=== PATIENT | female | born 1970 | race American Indian/Alaskan Native ===

== ENCOUNTER 2021-10-03 09:22 | Emergency (ER) | payer BC ==
[2021-10-03] MEDS ORDERED: SODIUM CHLORIDE 0.9% 1000 ML 1,000 ML IV ONE (10:26)
[2021-10-03] MEDS ORDERED: ONDANSETRON 4 MG/2 ML INJ IV ONE (10:26)
[2021-10-03] MEDS ORDERED: KETOROLAC 30 MG/1 ML INJ IV ONE (10:26)
[2021-10-03] MEDS ORDERED: MORPHINE 4 MG/1 ML INJ IV ONE (10:27)
[2021-10-03 11:09] LABS: Basophils % (Auto) 0.3 % (0.0-1.8); Lymphocytes # (Auto) 3.8 K/mm3 (1.2-5.4); Lymphocytes % (Auto) 26.1 % (13.4-35.0); Mean Corpuscular HGB Conc 29 % (30-34); Mean Corpuscular Volume 84 fl (79-97); Monocytes # (Auto) 1.1 K/mm3 (0.0-0.8); Monocytes % (Auto) 7.8 % (0.0-7.3); Platelet Count 568 K/mm3 (140-440); Red Blood Count 5.44 M/mm3 (3.65-5.03); Red Cell Distribution Width 14.7 % (13.2-15.2)
[2021-10-03 11:21] LABS: Hematocrit 45.8 % (30.3-42.9); Hemoglobin 13.5 gm/dl (10.1-14.3)
[2021-10-03] MEDS ORDERED: cefTRIAXone/NS 1 GM/50 ML 1 GM/50 ML BAG IV ONE (11:21)
[2021-10-03 11:43] LABS: Alanine Aminotransferase 8 units/L (7-56); Albumin 4.3 g/dL (3.9-5); BUN/Creatinine Ratio 16; Blood Urea Nitrogen 13 mg/dL (7-17); Calcium 9.3 mg/dL (8.4-10.2); Hemolysis Index 7
--- NOTE | 2021-10-03 12:42 | Cat Scan Report ---
CT ABDOMEN AND PELVIS WITHOUT CONTRAST INDICATION / CLINICAL INFORMATION: abd pain. TECHNIQUE: Axial CT images were obtained through the abdomen and pelvis without IV contrast. Sagittal and glaser l reformatted images. All CT scans at this location are performed using CT dose reduction for ALARA b y means of automated exposure control. COMPARISON: None available. FINDINGS: LOWER CHEST: No significant abnormality. LIVER: No significant abnormality. GALLBLADDER: Multiple gallstones are present. No abnormal dilatation or wall thickening. BILE DUCTS: No significant abnormality. PANCREAS: No significant abnormality. SPLEEN: No significant abnormality. ADRENALS: No significant abnormality. RIGHT KIDNEY and URETER: 3 or 4 punctate calyceal stones are identified in the right kidney. No focal right renal lesion or hydronephrosis. LEFT KIDNEY and URETER: There appear to be 2 stones in the distal left ureter measuring up to 3 mm. T here is moderate left hydronephrosis. A few punctate calyceal stones are identified in the left kidne y. No focal left renal lesion. STOMACH and SMALL BOWEL: Gastric sleeve surgical changes are suspected. The small bowel loops are unr emarkable. COLON: No significant abnormality. Mild diverticulosis of the distal colon is noted. APPENDIX: No significant abnormality. PERITONEUM: No free fluid. No free air. No fluid collection. LYMPH NODES: No significant adenopathy. AORTA and ARTERIES: No significant abnormality. IVC and VEINS: No significant abnormality. URINARY BLADDER: No significant abnormality. REPRODUCTIVE ORGANS: No significant abnormality. ADDITIONAL FINDINGS: None. SKELETAL SYSTEM: No significant abnormality. IMPRESSION: 2 small stones are identified in the distal left ureter, moderately obstructing. Punctate bilateral r enal stones. Cholelithiasis. Signer Name: Domenico Jaimes Jr, MD Signed: 10/03/2021 12:37 PM Workstation Name: [id number]
[2021-10-03 13:13] LABS: Bilirubin,Urine NEG (Negative); Blood,Urine LG (Negative); Color,Urine Yellow (Yellow); Protein,Urine <15 mg/dL mg/dL (Negative); Urobilinogen,Urine < 2.0 mg/dL (<2.0); WBC,Urine < 1.0 /HPF (0.0-6.0)
[2021-10-03] MEDS ORDERED: HYDROmorphone 1 MG/1 ML INJ IV ONE (13:14)
--- NOTE | 2021-10-03 13:15 | Emergency Department Report ---
ED Abdominal Pain HPI - General Chief Complaint: Back Pain/Injury Stated Complaint: LFT SIDE PAIN PUI?: No Time Seen by Provider: 10/03/21 10:27 Source: patient Mode of arrival: Ambulatory Limitations: No Limitations - History of Present Illness Initial Comments: 51 yo comes to ER with left flank pain and n/v. No fever or chills. No diarrhea. No cp. No sob. No dysuria. No vag dc. MD Complaint: abdominal pain, flank pain -: Sudden, hour(s) Location: L flank Radiation: none Severity scale (0 -10): 5 Consistency: constant Improves With: nothing Worsens With: nothing - Related Data Previous Rx's Medication Instructions Recorded Last Taken Type Nitrofurantoin Cecil/M-Cryst 100 mg PO Q12HR 10 Days capsule 10/03/21 Unknown Rx [Macrobid CAP] Ondansetron [Zofran Odt] 4 mg PO Q8HR PRN #10 tab.rapdis 10/03/21 Unknown Rx traMADoL [Ultram] 50 mg PO Q6HR PRN #12 tablet 10/03/21 Unknown Rx Allergies Allergy/AdvReac Type Severity Reaction Status Date / Time No Known Allergies Allergy Verified 10/03/21 10:17 ED Review of Systems ROS: Stated complaint: LFT SIDE PAIN Other details as noted in HPI Comment: All other systems reviewed and negative ED Past Medical Hx - Past Medical History Previous Medical History?: Yes Hx Hypertension: Yes Additional medical history: hypothyroidism - Surgical History Past Surgical History?: Yes Additional Surgical History: hysterectomy with ureter damage- stent/uroseptis; stent removed 11/12; g sleeve; apron removal; tubal; c section - Family History Family history: no significant - Social History Smoking Status: Never Smoker Substance Use Type: None - Medications Home Medications: Home Medications Medication Instructions Recorded Confirmed Last Taken Type Nitrofurantoin [place]/M-Cryst 100 mg PO Q12HR 10 Days capsule 10/03/21 Unknown Rx [Macrobid CAP] Ondansetron [Zofran Odt] 4 mg PO Q8HR PRN #10 tab.rapdis 10/03/21 Unknown Rx traMADoL [Ultram] 50 mg PO Q6HR PRN #12 tablet 10/03/21 Unknown Rx ED Physical Exam - General Limitations: No Limitations General appearance: alert, in no apparent distress - Head Head exam: Present: atraumatic, normocephalic - Eye Eye exam: Present: normal appearance - ENT ENT exam: Present: mucous membranes moist - Neck Neck exam: Present: normal inspection - Respiratory Respiratory exam: Present: normal lung sounds bilaterally. Absent: respiratory distress - Cardiovascular Cardiovascular Exam: Present: regular rate, normal rhythm. Absent: systolic murmur, diastolic murmur, rubs, gallop - GI/Abdominal GI/Abdominal exam: Present: soft, normal bowel sounds - Extremities Exam Extremities exam: Present: normal inspection - Back Exam Back exam: Present: normal inspection - Neurological Exam Neurological exam: Present: alert, oriented X3 - Psychiatric Psychiatric exam: Present: normal affect, normal mood - Skin Skin exam: Present: warm, dry, intact, normal color. Absent: rash ED Course Vital Signs 10/03/21 10:15 Temperature 98.4 F Pulse Rate 62 Respiratory 18 Rate Blood Pressure 185/93 O2 Sat by Pulse 98 Oximetry - Reevaluation(s) Reevaluation #1: 10/03/21 14:47 home meds lisinopril norvasc synthroid ED Medical Decision Making - Lab Data Result diagrams: 10/03/21 10:31 10/03/21 10:31 - Radiology Data Radiology results: report reviewed, image reviewed see report - Medical Decision Making Labs 10/03/21 10/03/21 10/03/21 10:31 10:31 10:31 WBC 14.5 H RBC 5.44 H Hgb 13.5 Hct 45.8 H MCV 84 MCH 25 L MCHC 29 L RDW 14.7 Plt Count 568 H Lymph % (Auto) 26.1 Cecil % (Auto) 7.8 H Eos % (Auto) 0.0 Baso % (Auto) 0.3 Lymph # (Auto) 3.8 Cecil # (Auto) 1.1 H Eos # (Auto) 0.0 Baso # (Auto) 0.0 Seg Neutrophils % 65.8 Seg Neutrophils # 9.6 H Sodium 137 Potassium 4.0 Chloride 98.7 Carbon Dioxide 23 Anion Gap 19 BUN 13 Creatinine 0.8 Estimated GFR > 60 BUN/Creatinine Ratio 16 Glucose 132 H POC Glucose Calcium 9.3 Total Bilirubin 0.30 AST 8 ALT 8 Alkaline Phosphatase 78 Total Protein 7.3 Albumin 4.3 Albumin/Globulin Ratio 1.4 Lipase 23 Urine Color Urine Turbidity Urine pH Ur Specific Sunset Urine Protein Urine Glucose (UA) Urine Ketones Urine Blood Urine Nitrite Urine Bilirubin Urine Urobilinogen Ur Leukocyte Esterase Urine WBC (Auto) Urine RBC (Auto) 10/03/21 10/03/21 13:23 Unknown WBC RBC Hgb Hct MCV MCH MCHC RDW Plt Count Lymph % (Auto) Cecil % (Auto) Eos % (Auto) Baso % (Auto) Lymph # (Auto) Cecil # (Auto) Eos # (Auto) Baso # (Auto) Seg Neutrophils % Seg Neutrophils # Sodium Potassium Chloride Carbon Dioxide Anion Gap BUN Creatinine Estimated GFR BUN/Creatinine Ratio Glucose POC Glucose < 10 L Calcium Total Bilirubin AST ALT Alkaline Phosphatase Total Protein Albumin Albumin/Globulin Ratio Lipase Urine Color Yellow Urine Turbidity Slightly-cloudy Urine pH 6.0 Ur Specific Sunset 1.021 Urine Protein <15 mg/dl Urine Glucose (UA) Neg Urine Ketones Neg Urine Blood Lg Urine Nitrite Neg Urine Bilirubin Neg Urine Urobilinogen < 2.0 Ur Leukocyte Esterase Neg Urine WBC (Auto) < 1.0 Urine RBC (Auto) < 1.0 Vital Signs 10/03/21 10:15 Temperature 98.4 F Pulse Rate 62 Respiratory 18 Rate Blood Pressure 185/93 O2 Sat by Pulse 98 Oximetry labs noted ua noted ct noted fluids given IV rocephin 1 GM pain and nausea treated all with good response findings discussed with pt Dr Mendoza office called for outpt follow up given her hx of stent and current stones/WBC/hydronephrosis She has been given appnt on Friday. Pt aware. Per uro ok to dc with Friday follow up. Pt verbalizes understanding of dc plan of care. Pt has copies of labs/imaging and discharge packet on her person. She understands use of meds, diet,activity and follow up. On dc pt ambulatory non toxic, taking po with normal VS - Differential Diagnosis ro stone/uti Critical care attestation.: If time is entered above; I have spent that time in minutes in the direct care of this critically ill patient, excluding procedure time. ED Disposition Clinical Impression: Kidney stones UTI (urinary tract infection) Qualifiers: Urinary tract infection type: site unspecified Hematuria presence: with he maturia Qualified Code(s): N39.0 - Urinary tract infection, site not specified; R31.9 - Hematuria, unspecified Hydronephrosis Qualifiers: Hydronephrosis type: unspecified Qualified Code(s): N13.30 - Unspecified hydronephrosis Disposition: 01 HOME / SELF CARE / HOMELESS Is pt being admited?: No Does the pt Need Aspirin: No Condition: Stable Instructions: Low-Purine Eating Plan, Kidney Stones, [id number] Additional Instructions: follow up as we arranged meds as ordered stay well hydrated with water motrin or tylenol can be used in addition to meds given to you today Prescriptions: Nitrofurantoin [place]/M-Cryst [Macrobid CAP] 100 mg PO Q12HR 10 Days capsule traMADoL [Ultram] 50 mg PO Q6HR PRN #12 tablet PRN Reason: Pain Ondansetron [Zofran Odt] 4 mg PO Q8HR PRN #10 tab.rapdis PRN Reason: Vomiting Referrals: PRIMARY CARE, [Primary Care Provider] - 3-5 Days BELLE MENDOZA MD [Staff Physician] - 3-5 Days Forms: Work/School Release Form Time of Disposition: 14:25
[2021-10-03 13:16] LABS: RBC,Urine < 1.0 /HPF (0.0-6.0)
[2021-10-03] MEDS ORDERED: ONDANSETRON 4 MG ODT TAB PO ONE (14:49)
[2021-10-03] MEDS ORDERED: HYDROcodone/ACETAMINOPHEN 10-325MG TAB PO ONE (14:49)
[2021-10-03 15:46] VITALS: BP 196/91
== END 2021-10-03 15:41 | disposition home or self-care (01) ==
LOC: ED 09:22
DX: N20.0 Calculus of kidney (principal); N39.0 Urinary tract infection, site not specified; N13.30 Unspecified hydronephrosis; I10 Essential (primary) hypertension
CPT/HCPCS: 36415; 74176; 80053; 81001; 82962; 83690; 85025; 96361; 96365; 96366; 96375; 99284; J0696; J1170; J1885; J2270; J2405; J7030; Q0162

== ENCOUNTER 2021-10-11 07:11 | Day surgery (SDC) | payer BC ==
[~2021-10-11 07:11] MED LIST: LACTATED RINGERS 1,000 ML IV SCH; MIDAZOLAM 2 MG/2 ML INJ IV NR
[2021-10-11] MEDS ORDERED: BACTERIOSTATIC SODIUM CHLORIDE 0.9% 30 ML VIAL INFILTRATI ONE (07:32)
--- NOTE | 2021-10-11 08:12 | Anesthesia Day of Surgery ---
Anesthesia Day of Surgery - Day of Surgery Patient Examined: Yes Patient H&P Reviewed: Yes Patient is NPO: Yes
--- NOTE | 2021-10-11 08:12 | Anesthesia Consultation ---
Anesthesia Consult and Med Hx Date of service: 10/11/21 - Airway Anesthetic Teeth Evaluation: Good, Caps (#8) ROM Head & Neck: Adequate Mental/Hyoid Distance: Adequate Mallampati Class: Class II Intubation Access Assessment: Probably Good - Pre-Operative Health Status ASA Pre-Surgery Classification: ASA2 Proposed Anesthetic Plan: General - Pulmonary Hx Smoking: No Hx Respiratory Symptoms: No Hx Sleep Apnea: No (SKYLER PRE SCREEN HIGH RISK) - Cardiovascular System Hx Hypertension: Yes (took antihypertensives last night) Hx Heart Attack/AMI: No Hx Percutaneous Transluminal Coronary Angioplasty (PTCA): No - Central Nervous System CVA: No - Endocrine Hx Renal Disease: No Hx Liver Disease: No Hx Insulin Dependent Diabetes: No Hx Non-Insulin Dependent Diabetes: No Hx Hypothyroidism: Yes - Hematic Hx Anemia: Yes - Other Systems Hx Obesity: Yes (BMI 39) - Additional Comments Anesthesia Medical History Comments: No hx anesthetic complications.
[2021-10-11] MEDS ORDERED: LIDOCAINE MPF (2%) 20 MG/1 ML VIAL 5 ML ONE (08:48)
[2021-10-11] MEDS ORDERED: propofoL 200 MG/20 ML VIAL IV ONE (08:49)
[2021-10-11] MEDS ORDERED: ceFAZolin/Water 2 GM/20 ML 2 GM/20 ML SYRINGE IV NR (09:00)
[2021-10-11] MEDS ORDERED: dexAMETHasone 20 MG/5 ML VIAL ONE (09:09)
[2021-10-11] MEDS ORDERED: IOHEXOL 300 MG/ML 50ML IV ONE (09:16)
[2021-10-11] MEDS ORDERED: WATER FOR IRRIG STERILE 2000 ML IR ONE (09:16)
[2021-10-11] MEDS ORDERED: WATER FOR IRRIG STERILE 1,500 ML BOTTLE IR ONE (09:16)
[2021-10-11] MEDS ORDERED: HYDROcodone/ACETAMINOPHEN 5-325 MG TAB PO PRN (09:30)
[2021-10-11] MEDS ORDERED: ONDANSETRON 4 MG/2 ML INJ IV PRN (09:30)
[2021-10-11] MEDS ORDERED: fentaNYL 100 MCG/2 ML INJ IV PRN (09:30)
--- NOTE | 2021-10-11 09:40 | Short Stay Summary ---
Short Stay Documentation Date of service: 10/11/21 - History H&P: obtained from office - Allergies and Medications Current Medications: Allergies No Known Allergies Allergy (Verified 10/03/21 10:17) Home Medications Medication Instructions Recorded Confirmed Last Taken Type HYDROcodone/APAP 5-325 [[place] 1 each PO Q6HR PRN #10 tablet 10/03/21 10/08/21 Unknown Rx 5/325] Ibuprofen [Motrin] 800 mg PO Q8HR PRN #30 tablet 10/03/21 10/08/21 Unknown Rx Nitrofurantoin [place]/M-Cryst 100 mg PO Q12HR 10 Days capsule 10/03/21 10/08/21 Unknown Rx [Macrobid CAP] Ondansetron [Zofran Odt] 4 mg PO Q8HR PRN #10 tab.rapdis 10/03/21 10/08/21 Unknown Rx Calcium Carbonate [Tums 500MG CHEW] 500 mg PO PRN PRN 10/08/21 10/08/21 Unknown History Levothyroxine Sodium [Synthroid] 150 mcg PO DAILY 10/08/21 10/08/21 Unknown History Lisinopril [Zestril TAB] 30 mg PO QDAY 10/08/21 10/08/21 Unknown History Simethicone [Gas-X Ultra Strength] 180 mg PO PRN PRN 10/08/21 10/08/21 Unknown History Tamsulosin [Flomax] 0.4 mg PO QDAY 10/08/21 10/08/21 Unknown History amLODIPine [Norvasc] 10 mg PO DAILY 10/08/21 10/08/21 Unknown History clonazePAM [KlonoPIN] 2 mg PO PRN PRN 10/08/21 10/08/21 Unknown History Active Medications Hydrocodone Bitart/Acetaminophen (Hydrocodone/Acetaminophen 5-325 Mg Tab) 2 each PO ONCE PRN PRN Reason: Pain, Moderate (4-6) Fentanyl (Fentanyl 100 Mcg/2 Ml Inj) 50 mcg IV Q5MIN PRN PRN Reason: Pain , Severe (7-10) Lactated Ringer's (Lactated Ringers) 1,000 mls @ 100 mls/hr IV DIRECT RINKU Stop: 10/11/21 23:59 Cefazolin Sodium (Ancef/Sterile Water 2 Gm/20 Ml) 2 gm in 20 mls @ 80 mls/hr IV PREOP NR; Protocol Stop: 10/11/21 09:14 Midazolam HCl (Midazolam 2 Mg/2 Ml Inj) 2 mg IV PREOP NR Stop: 10/11/21 23:00 Ondansetron HCl (Ondansetron 4 Mg/2 Ml Inj) 4 mg IV ONCE PRN PRN Reason: Nausea And Vomiting - Brief post op/procedure progress note Date of procedure: 10/11/21 Pre-op diagnosis: leeft ureteral stone Post-op diagnosis: same Procedure: cysto, left ureteroscopy, stent with external string Anesthesia: STEPHANY Surgeon: ABDIFATAH KATZ Estimated blood loss: none Pathology: none Condition: stable - Hospital course Hospital course: macrobid, norco, post op info on chart - Disposition Condition at discharge: Critical Disposition: 01 HOME / SELF CARE / HOMELESS Short Stay Discharge Plan Follow up with: PJ CASTRO [Other] - 7 Days
--- NOTE | 2021-10-11 10:03 | Operative Report ---
DATE OF SURGERY: 10/11/2021 PREOPERATIVE DIAGNOSIS: Left ureteral stone. POSTOPERATIVE DIAGNOSIS: Left ureteral stone. Left distal ureteral stricture passed stone. PROCEDURE PERFORMED: Cystoscopy, bilateral retrograde pyelograms, left ureteroscopy with dilation of left ureteral stricture, double-J stent placement with an external string (6-Djiboutian x 24 cm). SURGEON: Rene Dsouza M.D. ANESTHESIA: General. ESTIMATED BLOOD LOSS: Minimal. FLUIDS: Crystalloid. COMPLICATIONS: No complications. INDICATIONS: This patient is a 51-year-old female who presented to the emergency room for flank pain. CT of the abdomen and pelvis revealed a 3 mm distal ureteral stone x2. She was seen in the office for flank pain. She gives a history of stones in the past what appeared to have been septic and had a stent as well. Also, of note, she has had a as well as hysterectomy. Discussed options, she agreed to proceed. She and her agreed to proceed with surgical intervention. DESCRIPTION OF PROCEDURE: The patient was taken to the operative suite, placed in a supine position. After adequate general anesthesia, placed in the dorsal lithotomy position, prepped and draped in a sterile fashion. Pancystourethroscopy was performed with a 22-[place]iboutian Storz cystoscope, no urethral abnormalities. Her bladder was normal. Both ureteral orifices in normal position. No tumors or stones were noted. On solar energy technician, no obvious stones could be appreciated. Bilateral retrograde pyelograms were obtained with an 8-[place]ib[place] Cierra catheter and 8 mL of contrast. No filling defects or obstruction on the right. On the left side, there was narrowing of the distal ureter. 2.035 Glidewires were placed. Rigid ureteroscopy was performed approximately 2-3 cm proximal to the left ureter with some narrowing of the ureter (stricture). I was able to advance the scope through the stricture and dilate it. I then went all the way up to the renal pelvis. No obvious stones could be appreciated. There was some spotty edema in the ureter. A 6-[place]ib[place]ian 24 cm double-J stent was placed under fluoroscopic guidance with an external string. Bladder was drained. She was extubated and taken to recovery room. She will go home on [place] and Macrobid. She also will undergo a Litholink. TID: [id number] RECEIPT: [id number] CONNER/SHERRIE
--- NOTE | 2021-10-11 10:14 | Fluoroscopy Report ---
FL retrograde urography Technique: Intraoperative fluoroscopic guidance was provided. Fluoroscopy time: 0.2 minutes. Fluoroscopy images: 7. Findings/Impression: Intraoperative fluoroscopic guidance for cystogram, bilateral RPG, ureteroscopy, and left stent placement. Please see procedure report for further details. Signer Name: Abhishek Hayes MD Signed: 10/11/2021 10:07 AM Workstation Name: [id number]
[2021-10-11 11:51] VITALS: BP 137/74
--- NOTE | 2021-10-11 13:15 | Post Anesthesia Evaluation ---
- Post Anesthesia Evaluation Patient Participated: Yes Airway Patent: Yes Stable Respiratory Function: Yes Nausea/Vomiting: No Temp > 96.8F: Yes Pain Manageable: Yes Adequeate Hydration: Yes Anesthesia Complications: No
== END 2021-10-11 11:30 | disposition home or self-care (01) ==
LOC: OR 07:11
PROVIDERS: ATTEND Urology
DX: N13.2 Hydronephrosis with renal and ureteral calculous obstruction (principal); N13.1 Hydronephrosis with ureteral stricture, not elsewhere classified; G43.909 Migraine, unspecified, not intractable, without status migrainosus; I10 Essential (primary) hypertension; E66.9 Obesity, unspecified; K21.9 Gastro-esophageal reflux disease without esophagitis; Z79.899 Other long term (current) drug therapy; Z87.440 Personal history of urinary (tract) infections; Z20.822 Contact with and (suspected) exposure to COVID-19; Z98.51 Tubal ligation status; Z90.710 Acquired absence of both cervix and uterus; Z98.890 Other specified postprocedural states; Z68.39 Body mass index [BMI] 39.0-39.9, adult
CPT/HCPCS: 52332; 52344; 74420; C1758; C1769; C2617; J0690; J1100; J2250; J2405; J2704; J3010; J3490; J7120; Q9967; U0003

== ENCOUNTER 2021-10-29 03:06 | Emergency (ER) | payer BC ==
[2021-10-29] MEDS ORDERED: DICYCLOMINE 20 MG/2 ML INJ IM ONE (03:38)
[2021-10-29] MEDS ORDERED: ONDANSETRON 4 MG/2 ML INJ IV ONE (03:38)
[2021-10-29] MEDS ORDERED: HYDROmorphone 1 MG/1 ML INJ IV ONE (03:38)
--- NOTE | 2021-10-29 03:47 | Emergency Department Report ---
HPI - General Chief Complaint: Chest Pain Time Seen by Provider: 10/29/21 03:29 - HPI HPI: Room 1 The patient is a 51-year-old female present with a chief complaint of abdominal pain and back pain. Patient states yesterday she developed epigastric pain and upper back pain she felt as though it was gas. She took "gas pills" and Jodi- Mckinney and the pain eventually resolved. Patient states the pain returned today severe pain in epigastric region and upper back. Patient admits to nausea vomiting but denies diarrhea or fever. Patient has a history of cholelithiasis. Patient currently gives her pain a score of 10/10 ED Past Medical Hx - Past Medical History Hx Hypertension: Yes (took antihypertensives last night) Hx GERD: Yes Hx Headaches / Migraines: Yes (MIGRAINES) Hx Seizures: Yes (LAST SEIZURE 10 YRS AGO- NO LONGER ON MEDS) Hx Kidney Stones: Yes Hx Tuberculosis: Yes (+ SKIN TEST, TOOK [place] , NEG CXR- 25 YRS AGO) Additional medical history: hypothyroidism - Surgical History Additional Surgical History: hysterectomy with ureter damage- stent/uroseptis; stent removed 11/12; g sleeve; apron removal; tubal; c section - Family History Family history: no significant - Social History Smoking Status: Never Smoker Substance Use Type: None (Denies illicit drug use) - Medications Home Medications: Home Medications Medication Instructions Recorded Confirmed Last Taken Type HYDROcodone/APAP 5-325 [[place] 1 each PO Q6HR PRN #10 tablet 10/03/21 10/08/21 10/10/21 22:00 Rx 5/325] Ibuprofen [Motrin] 800 mg PO Q8HR PRN #30 tablet 10/03/21 10/11/21 10/06/21 Rx Nitrofurantoin [place]/M-Cryst 100 mg PO Q12HR 10 Days capsule 10/03/21 10/08/21 10/10/21 22:00 Rx [Macrobid CAP] Ondansetron [Zofran Odt] 4 mg PO Q8HR PRN #10 tab.rapdis 10/03/21 10/08/21 10/10/21 22:00 Rx Calcium Carbonate [Tums 500MG CHEW] 500 mg PO PRN PRN 10/08/21 10/08/21 10/10/21 22:00 History Levothyroxine Sodium [Synthroid] 150 mcg PO DAILY 10/08/21 10/08/21 10/10/21 22:00 History Lisinopril [Zestril TAB] 30 mg PO QDAY 10/08/21 10/11/21 10/09/21 22:00 History Simethicone [Gas-X Ultra Strength] 180 mg PO PRN PRN 10/08/21 10/08/21 10/10/21 22:00 History Tamsulosin [Flomax] 0.4 mg PO QDAY 10/08/21 10/08/21 10/10/21 22:00 History amLODIPine [Norvasc] 10 mg PO DAILY 10/08/21 10/08/21 10/10/21 22:00 History clonazePAM [KlonoPIN] 2 mg PO PRN PRN 10/08/21 10/11/21 09/27/21 History Dicyclomine [Bentyl] 20 mg PO QID #30 tablet 10/29/21 Unknown Rx HYDROcodone/APAP 5-325 [[place] 1 each PO Q6HR PRN #14 tablet 10/29/21 Unknown Rx 5/325] Ondansetron [Zofran ODT TAB] 8 mg PO Q8HR #20 tab.rapdis 10/29/21 Unknown Rx ED Review of Systems ROS: Stated complaint: CHEST PAINS Other details as noted in HPI Constitutional: denies: fever Eyes: denies: eye pain ENT: denies: throat pain Respiratory: no symptoms reported Cardiovascular: denies: chest pain Endocrine: no symptoms reported Gastrointestinal: abdominal pain, nausea, vomiting. denies: diarrhea Genitourinary: denies: dysuria Musculoskeletal: back pain Neurological: denies: headache Physical Exam - Physical Exam Vital Signs: Vital Signs 10/29/21 10/29/21 10/29/21 03:20 03:27 03:28 Temperature 98.2 F 99.0 F Pulse Rate 84 98 H Respiratory 20 15 15 Rate Blood Pressure 163/99 179/93 [Left] O2 Sat by Pulse 100 99 99 Oximetry Physical Exam: GENERAL: The patient is well-developed well-nourished female lying on stretcher appearing to be in moderate discomfort. [] HEENT: Normocephalic. Atraumatic. Extraocular motions are intact. Patient has moist mucous membranes. NECK: Supple. Trachea midline CHEST/LUNGS: Clear to auscultation. There is no respiratory distress noted. HEART/CARDIOVASCULAR: Regular. There is no tachycardia. There is no gallop rub or murmur. ABDOMEN: Abdomen is soft, with tenderness to palpation in midepigastric region. Patient has normal bowel sounds. There is no abdominal distention. SKIN: There is no rash. There is no edema. There is no diaphoresis. NEURO: The patient is awake, alert, and oriented. The patient is cooperative. The patient has no focal neurologic deficits. The patient has normal speech. GCS 15 MUSCULOSKELETAL: T There is no evidence of acute injury. ED Course Vital Signs 10/29/21 10/29/21 10/29/21 03:20 03:27 03:28 Temperature 98.2 F 99.0 F Pulse Rate 84 98 H Respiratory 20 15 15 Rate Blood Pressure 163/99 179/93 [Left] O2 Sat by Pulse 100 99 99 Oximetry - Reevaluation(s) Reevaluation #1: 10/29/21 05:10 Patient much improved after medication. ED Medical Decision Making - Lab Data Result diagrams: 10/29/21 03:44 10/29/21 03:44 - Radiology Data Radiology results: report reviewed (Chest x-ray, right upper quadrant ultrasound), image reviewed (Chest x-ray, right upper quadrant ultrasound) interpreted by me: Chest x-ray-no definite focal infiltrates, no pneumothorax [facility] [address] [place] [address] XRay Report Signed Patient: MICHAEL OLEARY MR#: [id number] : 1970 Acct:[id number] Age/Sex: 51 / F ADM Date: 10/29/21 Loc: ED Attending Dr: Clif tadeo Physician: GENE LAMBERT MD Date of Service: 10/29/21 Procedure(s): XR chest routine 2V Accession Number(s): [id number] cc: GENE LAMBERT MD Fluoro Time In Minutes: CHEST 2 VIEWS INDICATION / CLINICAL INFORMATION: CHEST PAIN. COMPARISON: None available. FINDINGS: SUPPORT DEVICES: None. HEART / MED IASTINUM: Heart size upper limits of normal. LUNGS / PLEURA: No significant pulmonary or pleural abnormality. No pneumothorax. ADDITIONAL FINDINGS: No significant additional findings. IMPRESSION: 1. No active cardiopulmonary disease. Signer Name: Lavelle Campbell II, MD Signed: 10/29/2021 4:12 AM Workstation Name: [id number] Transcribed By: ANAMARIA Dictated By: LAVELLE CAMPBELL II, MD Electronically Authenticated By: LAVELLE CAMPBELL II, MD Signed Date/Time: 10/29/21411 DD/ 0 TD/TT: [facility] [address] [place] [address] Ultrasound Report Signed Patient: MICHAEL OLEARY MR#: [id number] : 1970 Acct:[id number] Age/Sex: 51 / F ADM Date: 10/29/21 Loc: ED Attending Dr: Ordering Physician: GENE LAMBERT MD Date of Service: 10/29/21 Procedure(s): US abdomen limited Accession Number(s): [id number] cc: GENE LAMBERT MD ULTRASOUND ABDOMEN, LIMITED INDICATION / CLINICAL INFORMATION: Epigastric pain. COMPARISON: CT abdomen and pelvis 10/03/2021 FINDINGS: PANCREAS: Pancreas demonstrates lower than expected echotexture without ductal dilatation or peripancreatic fluid. LIVER: Liver demonstrates heterogeneous slightly hyperechoic echotexture with nodular margin with some images in turn suggesting cirrhosis. Right hepatic lobe measures 13.5 cm. Rounded appearance of the inferior right hepatic margin. Normal hepatopedal blood flow in the main portal vein. GALLBLADDER: Multiple echogenic stones some of which demonstrate posterior shadowing. No pericholecystic fluid. BILE DUCTS: No significant abnormality. Common bile duct measures 2.2 mm mm. FREE FLUID: None. ADDITIONAL FINDINGS: Longitudinal images of the aorta and inferior vena cava demonstrate no significant abnormalities. IMPRESSION: 1. Cholelithiasis without specific features of acute cholecystitis. 2. Nonspecific hypoattenuation of the pancreas could reflect pancreatic edema and evidence of acute pancreatitis. Correlation with serum lipase recommended. 3. Liver demonstrates heterogeneous slightly hyperechoic echotexture with mild cirrhotic features suggested. Signer Name: Lavelle Campbell II, MD Signed: 10/29/2021 4:56 AM Workstation Name: [id number] Transcribed By: ANAMARIA Dictated By: LAVELLE CAMPBELL II, MD Electronically Aut henticated By: LAVELLE CAMPBELL II, MD Signed Date/Time: 10/29/21455 DD/ 1 TD/TT: - Differential Diagnosis Pancreatitis, biliary pancreatitis, cholelithiasis, cholecystitis, ACS, STEF Critical care attestation.: If time is entered above; I have spent that time in minutes in the direct care of this critically ill patient, excluding procedure time. ED Disposition Clinical Impression: Symptomatic cholelithiasis, Acute abdominal pain Disposition: HOME / SELF CARE / HOMELESS Is pt being admited?: No Does the pt Need Aspirin: No Condition: Stable Instructions: Cholelithiasis, Eziu-dy-Kald Additional Instructions: Return to the emergency department should you develop worsening symptoms, inability to tolerate food or liquids, high fever or any other concerns Prescriptions: Dicyclomine [Bentyl] 20 mg PO QID #30 tablet HYDROcodone/APAP 5-325 [[place] 5/325] 1 each PO Q6HR PRN #14 tablet PRN Reason: Pain Ondansetron [Zofran ODT TAB] 8 mg PO Q8HR #20 tab.rapdis Referrals: NNEKA VELEZ DO [Staff Physician] - 3-5 Days (Dr. Velez is a general surgeon. Please follow-up with her for further evaluation of your gallbladder) JUS ESCAMILLA MD [Staff Physician] - 3-5 Days (Dr. Escamilla is a primary physician. Please follow-up with him to be established as a patient) Time of Disposition: 05:13
[2021-10-29 03:56] LABS: Basophils # (Auto) 0.2 K/mm3 (0.0-0.1); Basophils % (Auto) 2.4 % (0.0-1.8); Eosinophils # (Auto) 0.1 K/mm3 (0.0-0.4); Eosinophils % (Auto) 0.7 % (0.0-4.3); Hematocrit 36.9 % (30.3-42.9); Hemoglobin 12.9 gm/dl (10.1-14.3); Lymphocytes # (Auto) 3.3 K/mm3 (1.2-5.4); Lymphocytes % (Auto) 36.3 % (13.4-35.0); Mean Corpuscular HGB Conc 35 % (30-34); Mean Corpuscular Volume 85 fl (79-97); Monocytes # (Auto) 0.6 K/mm3 (0.0-0.8); Monocytes % (Auto) 6.4 % (0.0-7.3); Platelet Count 388 K/mm3 (140-440); Red Blood Count 4.33 M/mm3 (3.65-5.03); Red Cell Distribution Width 15.5 % (13.2-15.2)
[2021-10-29 04:06] LABS: INR 0.88 (0.87-1.13)
--- NOTE | 2021-10-29 04:16 | XRay Report ---
CHEST 2 VIEWS INDICATION / CLINICAL INFORMATION: CHEST PAIN. COMPARISON: None available. FINDINGS: SUPPORT DEVICES: None. HEART / MEDIASTINUM: Heart size upper limits of normal. LUNGS / PLEURA: No significant pulmonary or pleural abnormality. No pneumothorax. ADDITIONAL FINDINGS: No significant additional findings. IMPRESSION: 1. No active cardiopulmonary disease. Signer Name: Jamin Dickson II, MD Signed: 10/29/2021 4:12 AM Workstation Name: [id number]
[2021-10-29 04:22] LABS: Alanine Aminotransferase 27 units/L (7-56); BUN/Creatinine Ratio 15; Blood Urea Nitrogen 12 mg/dL (7-17); Calcium 9.5 mg/dL (8.4-10.2); Hemolysis Index 6
[2021-10-29 04:48] LABS: Creatine Kinase MB < 1.0 ng/mL (0.0-4.0)
--- NOTE | 2021-10-29 05:01 | Ultrasound Report ---
ULTRASOUND ABDOMEN, LIMITED INDICATION / CLINICAL INFORMATION: Epigastric pain. COMPARISON: CT abdomen and pelvis 10/03/2021 FINDINGS: PANCREAS: Pancreas demonstrates lower than expected echotexture without ductal dilatation or peripanc reatic fluid. LIVER: Liver demonstrates heterogeneous slightly hyperechoic echotexture with nodular margin with vika e images in turn suggesting cirrhosis. Right hepatic lobe measures 13.5 cm. Rounded appearance of the inferior right hepatic margin. Normal hepatopedal blood flow in the main portal vein. GALLBLADDER: Multiple echogenic stones some of which demonstrate posterior shadowing. No pericholecys tic fluid. BILE DUCTS: No significant abnormality. Common bile duct measures 2.2 mm mm. FREE FLUID: None. ADDITIONAL FINDINGS: Longitudinal images of the aorta and inferior vena cava demonstrate no significa nt abnormalities. IMPRESSION: 1. Cholelithiasis without specific features of acute cholecystitis. 2. Nonspecific hypoattenuation of the pancreas could reflect pancreatic edema and evidence of acute p ancreatitis. Correlation with serum lipase recommended. 3. Liver demonstrates heterogeneous slightly hyperechoic echotexture with mild cirrhotic features sug gested. Signer Name: Jamin Dickson II, MD Signed: 10/29/2021 4:56 AM Workstation Name: [id number]
[2021-10-29 05:32] VITALS: BP 150/77
--- NOTE | 2021-10-30 10:22 | Electrocardiograph Report ---
[facility] Test Date: 2021-10-29 Test Time: 03:10:58 Pat Name: MICHAEL OLEARY Department: Room: Gender: F Vascular Physician: NURSE : 1970 Requested By: GENE LAMBERT Order Number: [id number] Reading MD: Chidi Amaya Measurements Intervals [place] Rate: 70 P: 55 AK: 129 QRS: 21 QRSD: 72 T: QT: 393 QTc: 423 Interpretive Statements Sinus rhythm No previous ECG available for comparison Electronically Signed On 10-30-2021 10:21:39 EST by Chidi Amaya
== END 2021-10-29 05:32 | disposition home or self-care (01) ==
LOC: ED 03:06
DX: K80.20 Calculus of gallbladder without cholecystitis without obstruction (principal); I10 Essential (primary) hypertension; R10.13 Epigastric pain; K21.9 Gastro-esophageal reflux disease without esophagitis; G43.909 Migraine, unspecified, not intractable, without status migrainosus; R56.9 Unspecified convulsions; N20.0 Calculus of kidney; A15.9 Respiratory tuberculosis unspecified; Z98.890 Other specified postprocedural states
CPT/HCPCS: 36415; 71046; 76705; 80053; 82550; 82553; 83690; 84484; 85025; 85610; 93005; 96372; 96374; 96375; 99284; J0500; J1170; J2405

== ENCOUNTER 2021-11-13 05:55 | Day surgery (SDC) | payer BC ==
[2021-11-13] MEDS ORDERED: LACTATED RINGERS 1,000 ML ONE (06:10)
[2021-11-13] MEDS ORDERED: BUPIVACAINE/PF (0.5%) 5 MG/1 ML 30 ML VIAL INFILTRATI ONE ×2 (07:10→09:29)
[2021-11-13] MEDS ORDERED: LIDOCAINE (1%) 10 MG/1 ML VIAL 20 ML MDV ONE (07:10)
[2021-11-13] MEDS ORDERED: LIDOCAINE MPF (2%) 20 MG/1 ML VIAL 5 ML ONE (07:19)
[2021-11-13] MEDS ORDERED: ROCURONIUM 50 MG/5 ML INJ IV ONE ×2 (07:19→09:22)
[2021-11-13] MEDS ORDERED: ONDANSETRON 4 MG/2 ML INJ ONE ×3 (07:19→11:23)
[2021-11-13] MEDS ORDERED: HYDROmorphone 1 MG/1 ML INJ ONE (07:20)
[2021-11-13] MEDS ORDERED: propofoL 200 MG/20 ML VIAL IV ONE (07:21)
[2021-11-13] MEDS ORDERED: fentaNYL 100 MCG/2 ML INJ ONE ×2 (07:21→08:57)
--- NOTE | 2021-11-13 07:26 | Anesthesia Day of Surgery ---
Anesthesia Day of Surgery - Day of Surgery Patient Examined: Yes Patient H&P Reviewed: Yes Patient is NPO: Yes
--- NOTE | 2021-11-13 07:26 | Anesthesia Consultation ---
Anesthesia Consult and Med Hx Date of service: 11/13/21 - Airway Anesthetic Teeth Evaluation: Good, Caps ROM Head & Neck: Adequate Mental/Hyoid Distance: Adequate Mallampati Class: Class II Intubation Access Assessment: Probably Good - Pre-Operative Health Status ASA Pre-Surgery Classification: ASA2 Proposed Anesthetic Plan: General - Pulmonary Hx Smoking: No Hx Respiratory Symptoms: No Hx Sleep Apnea: No (SKYLER PRE SCREEN HIGH RISK) - Cardiovascular System Hx Hypertension: Yes (X 13 YRS) - Central Nervous System Hx Seizures: Yes (LAST SEIZURE 10 YRS AGO- NO LONGER ON MEDS) CVA: No - Gastrointestinal Hx Gastroesophageal Reflux Disease: Yes - Endocrine Hx Renal Disease: No Hx Liver Disease: Yes (gallbladder disease) Hx Insulin Dependent Diabetes: No Hx Non-Insulin Dependent Diabetes: No Hx Hypothyroidism: Yes - Hematic Hx Anemia: Yes - Other Systems Hx Cancer: No Hx Obesity: Yes (BMI 39.1)
[2021-11-13] MEDS ORDERED: FAMOTIDINE 20 MG/2 ML INJ IV ONE (07:27)
[2021-11-13] MEDS ORDERED: MIDAZOLAM 2 MG/2 ML INJ ONE (07:27)
[2021-11-13] MEDS ORDERED: LACTATED RINGERS 1,000 ML IV SCH (07:30)
[2021-11-13] MEDS ORDERED: MAGNESIUM OXIDE 400 MG TAB PO ONE (07:41)
[2021-11-13] MEDS ORDERED: HYDROmorphone 1 MG/1 ML INJ IV PRN (08:00)
[2021-11-13] MEDS ORDERED: MIDAZOLAM 2 MG/2 ML INJ IV NR (08:00)
[2021-11-13] MEDS ORDERED: ACETAMINOPHEN 500 MG TAB PO NR (08:00)
[2021-11-13] MEDS ORDERED: ONDANSETRON 4 MG/2 ML INJ IV PRN (08:00)
[2021-11-13] MEDS ORDERED: CELECOXIB 200 MG CAP PO NR (08:00)
[2021-11-13] MEDS ORDERED: FAMOTIDINE 20 MG/2 ML INJ IV NR (08:00)
[2021-11-13] MEDS ORDERED: NEOMY 3.5 MG/BACIT 400 UNITS/POLY B 5000 UNITS/GM OINT PACKET TP ONE (08:40)
[2021-11-13] MEDS ORDERED: ePHEDrine SULFATE 50 MG/1 ML INJ ONE (08:46)
[2021-11-13] MEDS ORDERED: ceFAZolin/STERILE WATER 2 GM/20 ML SYRINGE IV NR (09:00)
[2021-11-13] MEDS ORDERED: LIDOCAINE (1%) 10 MG/1 ML VIAL 20 ML MDV INFILTRATI ONE (09:30)
[2021-11-13] MEDS ORDERED: WATER FOR IRRIG STERILE 1,500 ML BOTTLE IR ONE (09:30)
[2021-11-13] MEDS ORDERED: KETOROLAC 30 MG/1 ML INJ ONE ×2 (09:33→09:34)
[2021-11-13] MEDS ORDERED: SUGAMMADEX SODIUM 200 MG/2 ML VIAL IV ONE (09:35)
--- NOTE | 2021-11-13 09:52 | Short Stay Summary ---
Short Stay Documentation Date of service: 11/13/21 - History Principal diagnosis: symptomatic cholelithiasis H&P: obtained from office - Allergies and Medications Current Medications: Allergies No Known Allergies Allergy (Verified 10/03/21 10:17) Home Medications Medication Instructions Recorded Confirmed Last Taken Type HYDROcodone/APAP 5-325 [[place] 1 each PO Q6HR PRN #10 tablet 10/03/21 11/13/21 11/10/21 Rx 5/325] Ibuprofen [Motrin] 800 mg PO Q8HR PRN #30 tablet 10/03/21 11/13/21 11/10/21 Rx Ondansetron [Zofran Odt] 4 mg PO Q8HR PRN #10 tab.rapdis 10/03/21 11/07/21 10/10/21 22:00 Rx Calcium Carbonate [Tums 500MG CHEW] 500 mg PO PRN PRN 10/08/21 11/07/21 10/10/21 22:00 History Levothyroxine Sodium [Synthroid] 150 mcg PO DAILY 10/08/21 11/13/21 11/12/21 20:00 History Lisinopril [Zestril TAB] 30 mg PO QDAY 10/08/21 11/13/21 11/10/21 History Simethicone [Gas-X Ultra Strength] 180 mg PO PRN PRN 10/08/21 11/07/21 10/10/21 22:00 History amLODIPine [Norvasc] 10 mg PO DAILY 10/08/21 11/13/21 11/12/21 20:00 History Active Medications Acetaminophen (Acetaminophen 500 Mg Tab) 1,000 mg PO ONCE NR Stop: 11/13/21 10:00 Cefazolin Sodium (Cefazolin/Sterile Water 2 Gm/20 Ml Syringe) 2 gm IV PREOP NR Stop: 11/13/21 23:00 Hydromorphone HCl (Hydromorphone 1 Mg/1 Ml Inj) 0.25 mg IV Q10MIN PRN PRN Reason: Pain, Moderate (4-6) Stop: 11/13/21 20:00 Hydromorphone HCl (Hydromorphone 1 Mg/1 Ml Inj) 0.5 mg IV Q10MIN PRN PRN Reason: Pain , Severe (7-10) Stop: 11/13/21 20:00 Lactated Ringer's (Lactated Ringers) 1,000 mls @ 100 mls/hr IV DIRECT RINKU Last Admin: 11/13/21 06:21 Dose: 100 mls/hr Ondansetron HCl (Ondansetron 4 Mg/2 Ml Inj) 4 mg IV ONCE PRN PRN Reason: Nausea And Vomiting Stop: 11/13/21 10:00 - Brief post op/procedure progress note Date of procedure: 11/13/21 Pre-op diagnosis: symptomatic cholelithiasis Post-op diagnosis: same Procedure: Robotic assisted cholecystectomy Anesthesia: GETA, local Findings: Distended gallbladder with stones and adhesions to the omentum Surgeon: NNEKA LUQUE Supervisor Sawmill: RYAN STATON Estimated blood loss: minimal Pathology: list (Gallbladder) Specimen disposition: to lab Condition: stable - Hospital course Hospital course: Patient observed in PACU and discharged home in stable condition - Disposition Condition at discharge: Good Disposition: 01 HOME / SELF CARE / HOMELESS Short Stay Discharge Plan Activity: other (No heavy lifting) Diet: regular Wound: open to air Additional Instructions: Please see attached discharge paperwork Follow up with: YURI PATIÑO MD [Primary Care Provider] - 7 Days NNEKA LUQUE DO [Staff Physician] - 14 Days Prescriptions: HYDROcodone/APAP 5-325 [[place] 5-325 mg TAB] 1 each PO Q6HR PRN #10 tablet PRN Reason: Pain , Severe (7-10)
--- NOTE | 2021-11-13 09:55 | Operative Report ---
Operative Report Operative Report: Date of procedure: 11/13/21 Pre-op diagnosis: symptomatic cholelithiasis Post-op diagnosis: same Procedure: Robotic assisted cholecystectomy Anesthesia: GETA, local Findings: Distended gallbladder with stones and adhesions to the omentum Surgeon: NNEKA LUQUE Alternative Energy Technician: RYAN STATON Estimated blood loss: minimal Pathology: list (Gallbladder) Specimen disposition: to lab Condition: stable Hospital course: Patient observed in PACU and discharged home in stable condition HPI an indication: 51-year-old female who presented to the surgery clinic with complaints of intermittent sharp right upper quadrant abdominal pain. All appropriate labs and imaging were reviewed. Patient found to have stones in the gallbladder without evidence of cholecystitis or biliary ductal dilatation. Her symptoms were consistent with symptomatic cholelithiasis. It was recommended that the patient undergo cholecystectomy. All risks, benefits, alternatives to surgery were discussed in detail and questions answered. Consent was obtained for robotic assisted laparoscopic, possible open cholecystectomy, possible cholangiogram. Procedure in detail: The patient was identified in the preoperative area and t aken back to the operating room, placed on the operating room table in supine position. After anesthesia was induced, the abdomen was prepped and draped in usual sterile fashion and timeout was performed. Local anesthetic was infiltrated into all of the skin incision sites. A berhane incision was made in the left upper quadrant at [place] through which a Veress needle was inserted. The Veress needle positioning could not be confirmed using saline drop test and therefore it was withdrawn. A supraumbilical incision was made through which a Veress needle was inserted. The Veress needle positioning was confirmed using saline drop test and the abdomen insufflated to 15 mmHg without incident. The Veress needle was then removed and a 5 mm Optiview trocar placed through the supraumbilical incision. The abdomen was inspected and there was no underlying injury to the abdominal structures. An 8 mm robotic trocar was placed in the right upper abdomen, and the left lower abdomen, and in the left lateral abdomen all under direct visualization. The 5 mm supraumbilical trocar was removed and replaced with a 12 mm balloon trocar under direct visualization. The patient was placed in reverse Trendelenburg and tilted to the left. The robot was then docked. A monopolar hook was placed in arm #1, a caudier grasper in arm #2, and a prograsp in arm #3. The surgeon was then transferred to the console. The gallbladder was moderately distended with adhesions to the omentum. Adhesions from the omentum to the falciform ligament were taken down with hook electrocautery. The adhesions from the omentum to the gallbladder were dissected using hook electrocautery and blunt dissection. The fundus of the gallbladder was grasped and retracted cephalad and above the liver. The cystic duct and artery were carefully skeletonized. The medial and lateral peritoneal attachments to the gallbladder were dissected using a combination of blunt dissection and hook electrocautery. The cystic duct and artery were the only 2 structures seen entering the gallbladder and the critical view was successfully obtained. 2 hemolock clips were placed on the proximal aspect of the cystic duct and 1 distally, and 2 hemolock clips placed on the proximal aspect of the cystic artery. The cystic duct was transected in between the clips using EndoShears by the mortgage loan assistant surgeon. The cystic artery was ligated distal to the clips using hook electrocautery. The gallbladder was dissected from the liver bed using electrocautery. Once completely dissected it was placed into the right upper quadrant and the liver bed was examined for hemostasis. This was very carefully ensured. The clips were visualized and intact. There was no bleeding or bile leakage. The robot was then undocked and the surgeon scrubbed back in. The remainder of the case was performed laparoscopically. The gallbladder was placed into a Endo Catch bag and removed from the abdomen via the 12mm port. The 12 mm port fascia was closed with interrupted 0 Vicryl suture x2 using the Reji Goldberg device. The remaining ports were removed under direct visualization. Skin incisions were closed with 4-0 Monocryl subcuticular stitches and skin glue. All skin incisions were once again infiltrated with local anesthetic. At the end case all sponge, instrument, sharp counts were correct 2. The patient was awoken from anesthesia, extubated, and taken to PACU in stable condition.
[2021-11-13] MEDS: HYDROmorphone 1 MG/1 ML INJ IV PRN ×2 (10:30→10:40)
[2021-11-13] MEDS ORDERED: HYDROcodone/ACETAMINOPHEN 5-325 MG TAB PO PRN (10:38)
--- NOTE | 2021-11-13 12:20 | Post Anesthesia Evaluation ---
- Post Anesthesia Evaluation Patient Participated: Yes Airway Patent: Yes Stable Respiratory Function: Yes Nausea/Vomiting: No Temp > 96.8F: Yes Pain Manageable: Yes Adequeate Hydration: Yes Anesthesia Complications: No Block Receding Appropriately: Not Applicable Patient on Ventilator: No
[2021-11-13 14:04] VITALS: BP 134/78
== END 2021-11-13 12:00 | disposition home or self-care (01) ==
LOC: OR 05:55
PROVIDERS: ATTEND Surgery
DX: K80.10 Calculus of gallbladder with chronic cholecystitis without obstruction (principal); K66.0 Peritoneal adhesions (postprocedural) (postinfection); G43.909 Migraine, unspecified, not intractable, without status migrainosus; E78.00 Pure hypercholesterolemia, unspecified; I10 Essential (primary) hypertension; K21.9 Gastro-esophageal reflux disease without esophagitis; E66.9 Obesity, unspecified; M19.90 Unspecified osteoarthritis, unspecified site; E03.9 Hypothyroidism, unspecified; F41.9 Anxiety disorder, unspecified; D64.9 Anemia, unspecified; Z79.899 Other long term (current) drug therapy; Z98.51 Tubal ligation status; Z90.710 Acquired absence of both cervix and uterus; Z87.442 Personal history of urinary calculi; Z87.440 Personal history of urinary (tract) infections; Z98.890 Other specified postprocedural states
CPT/HCPCS: 47562; 88304; J0690; J1170; J1885; J2250; J2405; J2704; J3010; J3490; J7120; S2900